=== PATIENT | male | born 1995 | race Two or more races ===

== ENCOUNTER 2022-03-05 08:32 | Emergency (ER) | payer OTHER ==
[2022-03-05] MEDS ORDERED: IBUPROFEN 400 MG TABLET (FP) PO ONE ×2 (08:42→08:48)
[2022-03-05 08:46] VITALS: BP 129/80; PULSE 88; TEMP 99; BMI 31.8
== END 2022-03-05 11:01 | disposition home or self-care (01) ==
LOC: FER 08:32
DX: M25.571 Pain in right ankle and joints of right foot (principal)
CPT/HCPCS: 73610-TC-RT-FY; 73630-TC-RT-FY; 99283-25